=== PATIENT | male | born 1980 | race Two or more races ===

== ENCOUNTER 2024-06-22 09:16 | Emergency (ER) | payer BC ==
[2024-06-22] MEDS ORDERED: Sodium Chloride 0.9% 10 ML Syringe FLUSH PRN (10:04)
[2024-06-22] MEDS: Iopamidol 612 MG/ML 30 ML SDV IVPUSH ONE (10:51)
[2024-06-22] MEDS: Iopamidol 612 MG/ML 100 ML Bottle IVPUSH ONE (10:51)
[2024-06-22] MEDS: Sodium Chloride 0.9% 10 ML Syringe FLUSH PRN (10:51)
[2024-06-22] MEDS: Ketorolac 30 MG/ML SDV IVPUSH ONE (10:56)
[2024-06-22 10:57] LABS: BASOPHILS PERCENT AUTO 0.4 % (0.0-1.0); EOSINOPHILS ABSOLUTE AUTO 0.2 K/mm3 (0.0-0.4); EOSINOPHILS PERCENT AUTO 3.1 % (0.0-6.0); HEMATOCRIT 54.3 % (42.0-52.0); HEMOGLOBIN 18.8 gm/dl (14.0-18.0); IMMATURE GRAN ABSOLUTE AUTO 0.01 K/mm3 (0.00-0.05); IMMATURE GRAN PERCENT AUTO 0.1 % (0.0-0.4); LYMPHOCYTES PERCENT AUTO 25.7 % (24.0-44.0); MEAN CORPUSCULAR HEMOGLOBIN 29.2 pg (28.0-32.0); MEAN CORPUSCULAR HGB CONC 34.6 g/dl (32.0-36.0); MEAN CORPUSCULAR VOLUME 84.4 fl (83.0-99.0); MEAN PLATELET VOLUME 11.3 fl (9.4-12.4); MONOCYTES ABSOLUTE AUTO 0.6 K/mm3 (0.0-0.8); MONOCYTES PERCENT AUTO 7.8 % (0.0-8.0); NEUTROPHILS PERCENT AUTO 62.9 % (41.0-71.0); PLATELET COUNT,PLT 218 K/mm3 (150-400); RED BLOOD CELL COUNT 6.43 M/mm3 (4.52-5.90); WHITE BLOOD CELL COUNT,WBC 7.86 K/mm3 (3.9-11.3)
[2024-06-22] MEDS: Ondansetron 4 MG/2 ML SDV IVPUSH ONE (10:57)
[2024-06-22 11:12] LABS: A/G RATIO 1.2 (1-2); ANION GAP 12.8 (5-15); BILIRUBIN TOTAL 0.9 mg/dL (0.2-1.0); BUN/CREATININE RATIO 17.1 (14-18); C-REACTIVE PROTEIN 2.05 mg/dL (<0.30); CALCIUM 9.1 mg/dL (8.5-10.1); CREATININE 1.4 mg/dL (0.7-1.3); EST CRCL DRUG DOSING (CG) 68.8 mL/min; PROTEIN TOTAL,TP 7.4 g/dl (6.4-8.2)
[2024-06-22 11:15] LABS: LACTIC ACID 0.9 mmol/L (0.4-2.0)
[2024-06-22 11:22] LABS: POTASSIUM,K 3.8 mEq/L (3.5-5.1)
[2024-06-22 11:36] LABS: APPEARANCE,URINE CLEAR (Clear); BILIRUBIN,URINE NEGATIVE (Negative); COLOR,URINE YELLOW (Yellow); GLUCOSE,URINE NEGATIVE (Negative); KETONES,URINE NEGATIVE (Negative); LEUKOCYTE ESTERASE,URINE NEGATIVE (Negative); NITRITE,URINE NEGATIVE (Negative); OCCULT BLOOD,URINE 2+ (Negative); PROTEIN,URINE TRACE (Negative); UROBILINOGEN,URINE 0.2 (0.2-1.0)
[2024-06-22] MEDS: Sodium Chloride 0.9% 500 ML IV SCH (12:04)
[2024-06-22 12:05] LABS: BACTERIA,URINE FEW /hpf (FEW); EPITHELIAL CELLS,URINE 0-5 /hpf (0-5); MUCUS,URINE FEW /hpf (FEW); RBC,URINE 20-30 /hpf (0-5); WBC,URINE 0-5 /hpf (0-5)
[2024-06-22] MEDS: Tamsulosin 0.4 MG Cap.ER PO ONE (12:05)
== END 2024-06-22 13:04 | disposition home or self-care (01) ==
LOC: JD.ED 09:16
DX: N13.2 Hydronephrosis with renal and ureteral calculous obstruction (principal); Z79.899 Other long term (current) drug therapy
CPT/HCPCS: 36415; 74177; 80053; 81001; 83605; 85025; 86140; 96374; 96375; 99284; A9270; J1885; J2405; J3490; J7040; Q9967